=== PATIENT | female | born 1970 | race Caucasian/White ===

== ENCOUNTER 2022-12-29 11:28 | Emergency (ER) | payer MEDICAID ==
[~2022-12-29] VITALS: Ht 165.1 cm; Wt 88.0 kg
[2022-12-29] MEDS ORDERED: TOPUD MT (14:27)
[2022-12-29] MEDS ORDERED: IBUP-1525 MT (14:27)
[2022-12-29] MEDS ORDERED: TRAM50TA3 MT (14:27)
[2022-12-29] MEDS ORDERED: P50 MT (14:29)
[2022-12-29] MEDS ORDERED: HYDROCODONE/ACETAMINOPHEN 5/325MG TABLET PO ONE (14:30)
[2022-12-29 15:02] VITALS: BP 123/64
== END 2022-12-29 15:03 | disposition home or self-care (01) ==
LOC: ER 11:28
DX: M25.562 Pain in left knee (principal)
CPT/HCPCS: 73562; 99283